=== PATIENT | male | born 1995 | race African-American/Black ===

== ENCOUNTER 2017-12-25 12:42 | Emergency (ER) | payer OTHER ==
[2017-12-25 12:51] VITALS: BP 129/80; PULSE 56; TEMP 98.9; BMI 30.5
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
== END 2017-12-25 13:38 | disposition home or self-care (01) ==
LOC: FER 12:42
DX: Z04.2 Encounter for examination and observation following work accident (principal); Y00.XXXA Assault by blunt object, initial encounter; Y93.89 Activity, other specified; Y92.159 Unspecified place in reform school as the place of occurrence of the external cause; Y99.0 Civilian activity done for income or pay
CPT/HCPCS: 99281-25

== ENCOUNTER 2019-01-26 11:26 | Emergency (ER) | payer OTHER ==
[~2019-01-26 11:26] MED LIST: CYCLOBENZAPRINE HCL 5 MG TABLET PO ONE
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
[2019-01-26] MEDS ORDERED: CYCLOBENZAPRINE HCL 5 MG TABLET PO ONE (11:34)
[2019-01-26] MEDS ORDERED: IBUPROFEN 600 MG TABLET (FP) PO ONE ×2 (11:34→11:47)
[2019-01-26 11:46] VITALS: BP 135/74; PULSE 64; TEMP 98.2; BMI 32.6
[2019-01-26] MEDS ORDERED: CYCLOBENZAPRINE HCL 10 MG TABLET (FP) ONE (11:47)
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
== END 2019-01-26 12:26 | disposition home or self-care (01) ==
LOC: FER 11:26
DX: M54.5 Low back pain (principal); R25.2 Cramp and spasm; J30.2 Other seasonal allergic rhinitis; V43.62XA Car passenger injured in collision with other type car in traffic accident, initial encounter; Y93.89 Activity, other specified; Y92.410 Unspecified street and highway as the place of occurrence of the external cause
CPT/HCPCS: 72100-TC-FY; 99283-25